=== PATIENT | female | born 1990 | race Caucasian/White ===

== ENCOUNTER 2018-12-14 18:41 | Emergency (ER) | payer OTHER ==
[~2018-12-14] VITALS: Ht 165.1 cm; Wt 93.4 kg
[2018-12-14] MEDS ORDERED: HYDHCL25 PO (20:30)
[2018-12-14] MEDS ORDERED: KETO10 PO (20:30)
== END 2018-12-14 20:53 | disposition home or self-care (01) ==
LOC: ER 18:41
DX: F41.0 Panic disorder [episodic paroxysmal anxiety] (principal); Z88.2 Allergy status to sulfonamides
CPT/HCPCS: 71046; 93005; 93010; 99285-25

== ENCOUNTER 2019-01-13 11:47 | Emergency (ER) | payer OTHER ==
[~2019-01-13] VITALS: Ht 167.6 cm; Wt 90.7 kg
[~2019-01-13 11:47] MED LIST: HYDHCL25 PO; KETO10 PO
[2019-01-13 13:06] LABS: BASOPHILS ABSOLUTE AUTO 0.03 K/mm3 (0.00-0.23); BASOPHILS PERCENT AUTO 0 % (0-2); EOSINOPHILS ABSOLUTE AUTO 0.13 K/mm3 (0.00-0.68); EOSINOPHILS PERCENT AUTO 2 % (0-6); Hematocrit 40.8 % (33.0-51.0); IMMATURE GRAN ABSOLUTE AUTO 0.02 K/mm3 (0.00-0.10); IMMATURE GRAN PERCENT AUTO 0 % (0-1); LYMPHOCYTES ABSOLUTE AUTO 2.62 K/mm3 (0.84-5.20); LYMPHOCYTES PERCENT AUTO 33 % (21-46); MONOCYTES ABSOLUTE AUTO 0.61 K/mm3 (0.16-1.47); MONOCYTES PERCENT AUTO 8 % (4-13); Mean Corpuscular HGB 26.4 pg (26.0-34.0); Mean Corpuscular HGB Conc 31.9 g/dL (31.5-36.5); Mean Corpuscular Volume 83 fL (80-100); Mean Platelet Volume 10.4 fL (9.1-12.4); NEUTROPHILS PERCENT AUTO 58 % (41-73); Platelet Count 314 K/mm3 (150-400); Red Blood Cell Count 4.92 M/mm3 (3.80-5.20); White Blood Cell Count 8.01 K/mm3 (4.00-11.30)
[2019-01-13] MEDS ORDERED: Ativan1 MG PO (13:24)
[2019-01-13 13:26] LABS: Alanine Aminotransfer (ALT/SGP 24 U/L (12-78); Alk Phos 61 U/L (50-136); Anion Gap 7 mmol/L (6-16); Aspartate Aminotrans (AST/SGOT 19 U/L (12-37); Bilirubin, Total 0.6 mg/dL (0.1-1.0); Blood Urea Nitrogen 9 mg/dL (8-24); CO2, Blood 23 mmol/L (21-32); Calcium, Blood 8.7 mg/dL (8.5-10.1); Chloride, Blood 106 mmol/L (98-108); Creatinine, Blood 0.64 mg/dL (0.40-1.00); Globulin, Blood 4.2 g/dL (2.2-4.0); Glomerular Filtration Rate >60 (60-); Glucose, Blood 78 mg/dL (70-99); Sodium, Blood 136 mmol/L (136-145); Total Protein, Blood 8.2 g/dL (6.4-8.2); Troponin I <0.015 ng/mL (0.000-0.040)
== END 2019-01-13 13:29 | disposition home or self-care (01) ==
LOC: ER 11:47
PROVIDERS: Physician Assistant
DX: R07.9 Chest pain, unspecified (principal); Z88.2 Allergy status to sulfonamides; Z88.8 Allergy status to other drugs, medicaments and biological substances
CPT/HCPCS: 36415; 71260; 80053; 84484; 84703; 85025; 93005; 93010; 99285-25; Q9967

== ENCOUNTER 2019-07-18 11:47 | Emergency (ER) | payer OTHER ==
[~2019-07-18] VITALS: Ht 167.6 cm; Wt 90.7 kg
[~2019-07-18 11:47] MED LIST changes: +Ativan1 MG PO
[2019-07-18] MEDS ORDERED: TRI-LO-MARZIA1 EACH PO (11:59)
[2019-07-18 12:29] LABS: BASOPHILS ABSOLUTE AUTO 0.04 K/mm3 (0.00-0.23); BASOPHILS PERCENT AUTO 1 % (0-2); EOSINOPHILS ABSOLUTE AUTO 0.09 K/mm3 (0.00-0.68); EOSINOPHILS PERCENT AUTO 1 % (0-6); Hematocrit 40.3 % (33.0-51.0); Hemoglobin 13.1 g/dL (11.5-16.0); IMMATURE GRAN ABSOLUTE AUTO 0.02 K/mm3 (0.00-0.10); IMMATURE GRAN PERCENT AUTO 0 % (0-1); LYMPHOCYTES ABSOLUTE AUTO 2.69 K/mm3 (0.84-5.20); LYMPHOCYTES PERCENT AUTO 31 % (21-46); MONOCYTES ABSOLUTE AUTO 0.64 K/mm3 (0.16-1.47); MONOCYTES PERCENT AUTO 7 % (4-13); Mean Corpuscular HGB 26.8 pg (26.0-34.0); Mean Corpuscular HGB Conc 32.5 g/dL (31.5-36.5); Mean Corpuscular Volume 82 fL (80-100); Mean Platelet Volume 10.3 fL (9.1-12.4); NEUTROPHILS ABSOLUTE AUTO 5.14 K/mm3 (1.96-9.15); NEUTROPHILS PERCENT AUTO 60 % (41-73); Platelet Count 343 K/mm3 (150-400); RDW Coefficient Variation 12.3 % (11.7-14.2); RDW Standard Deviation 37.2 fL (35.1-46.3); Red Blood Cell Count 4.89 M/mm3 (3.80-5.20); White Blood Cell Count 8.62 K/mm3 (4.00-11.30)
[2019-07-18 12:42] LABS: Alanine Aminotransfer (ALT/SGP 26 U/L (12-78); Albumin, Blood 3.6 g/dL (3.4-5.0); Albumin/Globulin Ratio 0.8 (0.8-1.8); Alk Phos 56 U/L (50-136); Anion Gap 10 mmol/L (6-16); Aspartate Aminotrans (AST/SGOT 16 U/L (12-37); Bilirubin, Total 0.3 mg/dL (0.1-1.0); Blood Urea Nitrogen 9 mg/dL (8-24); Bun/Creatinine Ratio 11.3 (12.0-20.0); CO2, Blood 21 mmol/L (21-32); Calcium, Blood 9.2 mg/dL (8.5-10.1); Chloride, Blood 108 mmol/L (98-108); Globulin, Blood 4.3 g/dL (2.2-4.0); Glomerular Filtration Rate >60 (60-); Glucose, Blood 111 mg/dL (70-99); Potassium, Blood 3.6 mmol/L (3.5-5.5); Sodium, Blood 139 mmol/L (136-145); Total Protein, Blood 7.9 g/dL (6.4-8.2)
[2019-07-18] MEDS ORDERED: Lopressor 25 mg25 MG PO (13:48)
== END 2019-07-18 14:15 | disposition home or self-care (01) ==
LOC: ER 11:47
PROVIDERS: Emergency Medicine
DX: R00.0 Tachycardia, unspecified (principal); R22.2 Localized swelling, mass and lump, trunk; F41.9 Anxiety disorder, unspecified; Z88.2 Allergy status to sulfonamides; Z91.018 Allergy to other foods; Z79.899 Other long term (current) drug therapy
CPT/HCPCS: 36415; 80053; 85025; 93005; 93010; 99285-25

== ENCOUNTER 2019-07-23 21:55 | Emergency (ER) | payer OTHER ==
[~2019-07-23] VITALS: Ht 167.6 cm; Wt 88.9 kg
[~2019-07-23 21:55] MED LIST changes: +Lopressor 25 mg25 MG PO; +TRI-LO-MARZIA1 EACH PO
[2019-07-23 22:48] LABS: BASOPHILS ABSOLUTE AUTO 0.02 K/mm3 (0.00-0.23); BASOPHILS PERCENT AUTO 0 % (0-2); EOSINOPHILS ABSOLUTE AUTO 0.19 K/mm3 (0.00-0.68); EOSINOPHILS PERCENT AUTO 2 % (0-6); Hematocrit 40.2 % (33.0-51.0); Hemoglobin 12.9 g/dL (11.5-16.0); IMMATURE GRAN ABSOLUTE AUTO 0.02 K/mm3 (0.00-0.10); IMMATURE GRAN PERCENT AUTO 0 % (0-1); LYMPHOCYTES ABSOLUTE AUTO 3.66 K/mm3 (0.84-5.20); LYMPHOCYTES PERCENT AUTO 41 % (21-46); MONOCYTES ABSOLUTE AUTO 0.65 K/mm3 (0.16-1.47); MONOCYTES PERCENT AUTO 7 % (4-13); Mean Corpuscular HGB 26.4 pg (26.0-34.0); Mean Corpuscular HGB Conc 32.1 g/dL (31.5-36.5); Mean Corpuscular Volume 82 fL (80-100); Mean Platelet Volume 10.1 fL (9.1-12.4); NEUTROPHILS ABSOLUTE AUTO 4.44 K/mm3 (1.96-9.15); NEUTROPHILS PERCENT AUTO 50 % (41-73); Platelet Count 318 K/mm3 (150-400); RDW Coefficient Variation 12.4 % (11.7-14.2); RDW Standard Deviation 37.5 fL (35.1-46.3); Red Blood Cell Count 4.88 M/mm3 (3.80-5.20); White Blood Cell Count 8.98 K/mm3 (4.00-11.30)
[2019-07-23 23:12] LABS: Alanine Aminotransfer (ALT/SGP 27 U/L (12-78); Albumin, Blood 3.5 g/dL (3.4-5.0); Albumin/Globulin Ratio 0.8 (0.8-1.8); Alk Phos 62 U/L (50-136); Anion Gap 6 mmol/L (6-16); Aspartate Aminotrans (AST/SGOT 7 U/L (12-37); Bilirubin, Total 0.2 mg/dL (0.1-1.0); Blood Urea Nitrogen 8 mg/dL (8-24); Bun/Creatinine Ratio 10.2 (12.0-20.0); CO2, Blood 26 mmol/L (21-32); Calcium, Blood 8.5 mg/dL (8.5-10.1); Chloride, Blood 107 mmol/L (98-108); Creatinine, Blood 0.79 mg/dL (0.40-1.00); Free Thyroxine 1.13 ng/dL (0.70-1.60); Globulin, Blood 4.2 g/dL (2.2-4.0); Glomerular Filtration Rate >60 (60-); Glucose, Blood 94 mg/dL (70-99); Potassium, Blood 3.9 mmol/L (3.5-5.5); Sodium, Blood 139 mmol/L (136-145); Total Protein, Blood 7.7 g/dL (6.4-8.2); Troponin I <0.015 ng/mL (0.000-0.040)
== END 2019-07-24 00:25 | disposition home or self-care (01) ==
LOC: ER 21:55
PROVIDERS: Emergency Medicine
DX: R53.1 Weakness (principal); Z88.2 Allergy status to sulfonamides; Z91.018 Allergy to other foods; Z79.899 Other long term (current) drug therapy
CPT/HCPCS: 71046; 80053; 84439; 84443; 84484; 85025; 93005; 93010; 96361; 96374; 96375; 99285-25; J1885; J2405; J7030

== ENCOUNTER 2020-04-10 11:02 | Emergency (ER) | payer OTHER ==
[~2020-04-10] VITALS: Ht 165.1 cm; Wt 81.7 kg
[2020-04-10 12:21] LABS: BASOPHILS ABSOLUTE AUTO 0.02 K/mm3 (0.00-0.23); BASOPHILS PERCENT AUTO 0 % (0-2); EOSINOPHILS ABSOLUTE AUTO 0.13 K/mm3 (0.00-0.68); EOSINOPHILS PERCENT AUTO 2 % (0-6); Hematocrit 43.4 % (33.0-51.0); Hemoglobin 13.8 g/dL (11.5-16.0); IMMATURE GRAN ABSOLUTE AUTO 0.02 K/mm3 (0.00-0.10); IMMATURE GRAN PERCENT AUTO 0 % (0-1); LYMPHOCYTES ABSOLUTE AUTO 2.11 K/mm3 (0.84-5.20); LYMPHOCYTES PERCENT AUTO 33 % (21-46); MONOCYTES ABSOLUTE AUTO 0.52 K/mm3 (0.16-1.47); MONOCYTES PERCENT AUTO 8 % (4-13); Mean Corpuscular HGB 26.8 pg (26.0-34.0); Mean Corpuscular HGB Conc 31.8 g/dL (31.5-36.5); Mean Corpuscular Volume 84 fL (80-100); Mean Platelet Volume 10.1 fL (9.1-12.4); NEUTROPHILS PERCENT AUTO 56 % (41-73); Platelet Count 307 K/mm3 (150-400); RDW Standard Deviation 36.8 fL (35.1-46.3); Red Blood Cell Count 5.15 M/mm3 (3.80-5.20)
[2020-04-10 12:30] LABS: Alanine Aminotransfer (ALT/SGP 23 U/L (12-78); Albumin, Blood 3.6 g/dL (3.4-5.0); Albumin/Globulin Ratio 0.8 (0.8-1.8); Alk Phos 53 U/L (50-136); Anion Gap 5 mmol/L (6-16); Aspartate Aminotrans (AST/SGOT 16 U/L (12-37); Bilirubin, Total 0.3 mg/dL (0.1-1.0); Blood Urea Nitrogen 8 mg/dL (8-24); Bun/Creatinine Ratio 11.5 (12.0-20.0); CO2, Blood 24 mmol/L (21-32); Calcium, Blood 8.7 mg/dL (8.5-10.1); Chloride, Blood 108 mmol/L (98-108); Globulin, Blood 4.3 g/dL (2.2-4.0); Glomerular Filtration Rate >60 (60-); Glucose, Blood 83 mg/dL (70-99); Sodium, Blood 137 mmol/L (136-145); Total Protein, Blood 7.9 g/dL (6.4-8.2); Troponin I <0.015 ng/mL (0.000-0.040)
[2020-04-10] MEDS ORDERED: PROP10 PO (13:08)
[2020-04-10] MEDS ORDERED: Pyridostigmine60 MG PO (13:09)
[2020-04-10] MEDS ORDERED: PROM25S PR (15:20)
[2020-04-10] MEDS ORDERED: ONDA4ODT MM (15:20)
== END 2020-04-10 15:34 | disposition home or self-care (01) ==
LOC: ER 11:02
PROVIDERS: Physician Assistant
DX: I10 Essential (primary) hypertension (principal); R42 Dizziness and giddiness; R11.0 Nausea; Z88.2 Allergy status to sulfonamides; Z88.8 Allergy status to other drugs, medicaments and biological substances; F41.9 Anxiety disorder, unspecified; Z79.899 Other long term (current) drug therapy
CPT/HCPCS: 36415; 80053; 84484; 85025; 93005; 93010; 96361; 96374; 99283-25; J2405; J7030

== ENCOUNTER → 2020-05-15 | Outpatient (CLI) | payer OTHER ==
[~2020-05-15] MED LIST changes: +ONDA4ODT MM; +PROM25S PR; +PROP10 PO; +Pyridostigmine60 MG PO
== END | disposition home or self-care (01) ==
LOC: LAB SHORT 12:27 → LAB 12:27
DX: R30.0 Dysuria (principal)
CPT/HCPCS: 87077; 87086; 87186

== ENCOUNTER 2020-07-24 08:32 | Day surgery (SDC) | payer OTHER ==
[~2020-07-24] VITALS: Ht 167.6 cm; Wt 87.7 kg
[~2020-07-24 08:32] MED LIST changes: +Omeprazole20 M1 PO; +SUMA25
--- NOTE | 2020-07-24 14:46 | NUR ---
Ambulatory in Day Surgery. Surgical site prepped with 2% Chlorhexidine cloth wipe. Patient States Post-Procedure ride home has been arranged. Pre-Op teaching done. Pt verbalizes understanding. Patient confirms NPO status and agrees with scheduled surgery. Lungs clear T/O to Auscultation. History, Chart, Medications and Allergies reviewed before start of procedure.
--- NOTE | 2020-07-24 17:50 | NUR ---
ASSUMED CARE AT 1745 PT WITH EYES CLOSED RESP E/U WAKES EASILY TO VERBAL STIMULI RATES PAIN 2/10 DECLINES NEED OF ANYTHING AT THIS TIME.
--- NOTE | 2020-07-24 18:37 | NUR ---
1830 TO ROOM PER BETTYERBHASKAR FROM PACU. PT ABLE TO SCOOT SELF FROM GURNEY TO BED. PT REPORTS PAIN IS 2/10, DENIES NAUSEA. ABD SITES X4 WITH STERI STRIPS INTACT. PT TAKING SIPS OF JUICE. PT HAS PHONED HER MOTHER WHO WILL BE HERE THIS EVENING TO DRIVE PATIENT HOME
--- NOTE | 2020-07-24 19:31 | NUR ---
PTS MOTHER HERE AND TOOK PATIENTS [facility] PRESCRIPTION TO HAVE FILLED
--- NOTE | 2020-07-24 23:51 | NUR ---
DISCHARGE NOTE STAFF DISCHARGED PT FROM COMPUTER WHILE I WAS IN ROOM PROCESSING COMPLETION OF DISCHARGE.PT WAS TOLERATING PO,PAIN WELL CONTROLLED WITH PO MED,VOIDING WITHOUT DIFF,AMBULATORY,[facility] WITH STERI STRIPS D/I, DCD IV WITH CATH INTACT-SITE CLEAR.DISCHARGED PER OUTPT PROTOCOL @ 2035.
== END 2020-07-24 22:33 | disposition home or self-care (01) ==
LOC: ORSCMMR 08:32 → ORD 08:32 → ORSCMMR 08:33 → ORD 11:00 → SURS 18:32 → ORD 22:33
DX: K80.63 Calculus of gallbladder and bile duct with acute cholecystitis with obstruction (principal); K21.9 Gastro-esophageal reflux disease without esophagitis; Z79.899 Other long term (current) drug therapy
CPT/HCPCS: 74300; 88304; A9270-GY; C1729; J0690; J1100; J1885; J2250; J2405; J2704; J2765; J3010; J7120; U0002

== ENCOUNTER → 2020-09-17 | Outpatient (CLI) | payer OTHER | END | disposition home or self-care (01) | LOC: LAB 15:36 → LAB SHORT 15:36 | DX: R30.0 Dysuria (principal) | CPT/HCPCS: 87086 ==